=== PATIENT | female | born 1975 | race African-American/Black ===

== ENCOUNTER 2018-11-30 23:39 | Emergency (ER) | payer OTHER ==
[~2018-11-30] VITALS: Ht 167.6 cm; Wt 113.4 kg
[2018-12-01] MEDS ORDERED: NORCO 5-325 TA1 EAC1 PO (00:33)
[2018-12-01] MEDS ORDERED: NAPROXEN SODIU500 MG PO (00:33)
[2018-12-01 01:30] VITALS: BP 149/92
== END 2018-12-01 01:30 | disposition home or self-care (01) ==
LOC: ER 23:39
DX: S52.514A Nondisplaced fracture of right radial styloid process, initial encounter for closed fracture (principal); W18.39XA Other fall on same level, initial encounter; Y93.01 Activity, walking, marching and hiking; Y92.89 Other specified places as the place of occurrence of the external cause; Y99.8 Other external cause status